=== PATIENT | male | born 1980 | race Two or more races ===

== ENCOUNTER 2018-06-16 18:59 | Emergency (ER) | payer SELFPAY ==
[~2018-06-16] VITALS: Ht 175.3 cm; Wt 79.0 kg
[2018-06-16] MEDS ORDERED: HYDROCODONE/ACETAMINOPHEN 5/325MG TABLET PO ONE (20:30)
[2018-06-16 21:30] VITALS: BP 106/62
== END 2018-06-16 22:02 | disposition home or self-care (01) ==
LOC: ER 18:59
DX: S42.001A Fracture of unspecified part of right clavicle, initial encounter for closed fracture (principal); V09.9XXA Pedestrian injured in unspecified transport accident, initial encounter; Y93.89 Activity, other specified; Y92.89 Other specified places as the place of occurrence of the external cause; Y99.8 Other external cause status
CPT/HCPCS: 73030; 99284; A4565